=== PATIENT | female | born 1960 ===

== ENCOUNTER → 2018-03-02 21:37 | Outpatient (REF) | payer OTHER, SELFPAY ==
[2018-03-02 22:23] LABS: White Blood Cell Count 7.1 X10^3/uL (4.5-11.0)
[2018-03-02 22:24] LABS: Eosinophils Percent Auto 3.1 % (2-4)
[2018-03-02 22:25] LABS: Eosinophils Absolute Auto 220 /uL (40-440)
[2018-03-02 22:45] LABS: Free T3, Triiodothyronine Free 3.37 pg/mL (2.77-5.27); Free T4, Direct Thyroxine 0.84 ng/dL (0.78-2.19)
[2018-03-02 22:59] LABS: Thyroid Stimulating Hormone 0.66 uIU/mL (0.47-4.68)
[2018-03-04 15:12] LABS: Progesterone 32.5 ng/mL
[2018-03-05 15:34] LABS: Estradiol 31 pg/mL
== END ==
LOC: LAB 21:37
PROVIDERS: Visit Provider Naturopath
DX: Z79.890 Hormone replacement therapy (principal)
CPT/HCPCS: 82670; 84144; 84439; 84443; 84481; 85009